=== PATIENT | female | born 1940 | race Caucasian/White ===

== ENCOUNTER 2022-12-30 10:52 | Outpatient (CLI) | payer MEDICARE, BC | END 2022-12-30 23:59 | disposition home or self-care (01) | LOC: CARD DIAG 10:52 | PROVIDERS: ATTEND Internal Medicine Cardiovascular Disease | DX: I34.81 Nonrheumatic mitral (valve) annulus calcification (principal); R06.02 Shortness of breath | CPT/HCPCS: 93306 ==

== ENCOUNTER 2023-05-27 10:03 | Day surgery (SDC) | payer MEDICARE, BC ==
[2023-05-26 12:55] LABS: BASOPHILS % (AUTO) 0.4 % (0-1); EOSINOPHILS % (AUTO) 0.3 % (0-6); HEMATOCRIT 31.4 % (35.0-45.0); HEMOGLOBIN 9.8 g/dl (12.0-16.0); LYMPHOCYTES # (AUTO) 0.3 X10'3 (1.1-4.8); LYMPHOCYTES % (AUTO) 3.7 % (21-51); MEAN CORPUSCULAR HEMOGLOBIN 27.8 PG (27.0-31.0); MEAN CORPUSCULAR HGB CONC 31.1 g/dL (33.0-36.5); MEAN CORPUSCULAR VOLUME 89.4 FL (78-98); MONOCYTES # (AUTO) 0.1 X10'3 (0-0.9); MONOCYTES % (AUTO) 1.5 % (2-12); NEUTROPHILS # (AUTO) 8.5 X10'3 (1.8-7.7); NEUTROPHILS % (AUTO) 94.1 % (42-75); PLATELET COUNT 259 X10'3 (140-440); RED BLOOD COUNT 3.51 X10'6 (4.20-5.60); RED CELL DISTRIBUTION WIDTH 17.7 % (11.5-14.5); WHITE BLOOD COUNT 9.1 X10'3 (4.5-11.0)
[2023-05-26 12:58] LABS: ALBUMIN 3.6 G/DL (3.4-5.0); ANION GAP 6 (8-16); BLOOD UREA NITROGEN 19 MG/DL (7-18); BUN/CREATININE RATIO 19.4 (10.0-20.0); CALCIUM 9.2 MG/DL (8.5-10.1); CHLORIDE 107 MMOL/L (99-107); CREATININE 0.98 MG/DL (0.40-0.90); GLUCOSE 121 MG/DL (70-104); POTASSIUM 4.3 MMOL/L (3.5-5.1); SODIUM 141 MMOL/L (135-145); TOTAL CARBON DIOXIDE 27.6 MMOL/L (24-32); eGFR 54 ML/MIN
[2023-05-26 13:00] LABS: APTT 29 SECONDS (22-32)
[~2023-05-27] VITALS: Ht 154.9 cm; Wt 57.6 kg
[2023-05-27] VITALS (10 sets, daily range): BP systolic 145–177; BP diastolic 53–69; PULSE 63–71; RESP 12–15; TEMP 98.4; O2SAT 93–100
[2023-05-27] MEDS ORDERED: diphenhydrAMINE 25mg capsule PO PRN (10:30)
[2023-05-27] MEDS ORDERED: normal saline 1,000 ML IV SCH (10:30)
[2023-05-27] MEDS ORDERED: LORazepam 0.5 MG tablet PO PRN (10:30)
[2023-05-27] MEDS ORDERED: FLEC50TA28 PO (11:02)
[2023-05-27] MEDS ORDERED: LOSA50TA64 PO (11:02)
[2023-05-27] MEDS ORDERED: ATOR40TA72 PO (11:02)
[2023-05-27] MEDS ORDERED: CARV6.2553 PO (11:02)
[2023-05-27] MEDS ORDERED: MONT-40 PO (11:02)
[2023-05-27] MEDS ORDERED: HYDR-3686 PO (11:02)
[2023-05-27] MEDS ORDERED: FLEC100T35 PO (11:05)
[2023-05-27] MEDS ORDERED: DAPA10TA PO (11:05)
[2023-05-27] MEDS ORDERED: APIX2.5T PO (11:07)
[2023-05-27] MEDS ORDERED: LEVO50TA8 PO (11:07)
[2023-05-27] MEDS ORDERED: PIOG45TA65 PO (11:07)
[2023-05-27] MEDS ORDERED: DUPI300P (11:07)
[2023-05-27] MEDS ORDERED: PRE5T PO (11:13)
[2023-05-27] MEDS ORDERED: METF-1203 PO (11:13)
[2023-05-27] MEDS ORDERED: LANTUS SQ (11:13)
[2023-05-27] MEDS ORDERED: DENO60DI SUBCUT (11:13)
[2023-05-27] MEDS ORDERED: NIAC-8 PO (11:13)
[2023-05-27] MEDS ORDERED: VITAMIN B12 (11:16)
[2023-05-27] MEDS ORDERED: IRON PO (11:16)
[2023-05-27] MEDS ORDERED: UBIQ75CA (11:18)
[2023-05-27] MEDS ORDERED: ASPI-1265 PO (11:18)
[2023-05-27] MEDS ORDERED: CALCIUM (11:19)
[2023-05-27] MEDS ORDERED: [UNRECOGNIZED DRUG - OTHER] (11:20)
[2023-05-27] MEDS ORDERED: LIDOcaine 1% (10mg/ml) 2ml vial ONE (11:53)
[2023-05-27] MEDS ORDERED: verapamil 2.5 mg/ml inj IV ONE (11:53)
[2023-05-27] MEDS ORDERED: iohexol 350MG/ML 100ml bottle IV ONE (11:54)
[2023-05-27] MEDS ORDERED: heparin 1,000unit/ml 10ml vial 10 ML ONE (11:54)
[2023-05-27] MEDS ORDERED: midazolam 1 mg/ML 2ml injection ONE (11:54)
[2023-05-27] MEDS ORDERED: iohexol 350 MG/ML 50ML vial IV ONE (11:54)
[2023-05-27] MEDS ORDERED: fentaNYL/PF 50MCG/1 ML 2ML syringe ONE (11:54)
[2023-05-27] MEDS ORDERED: nitroGLYCERIN 500mcg/5mL D5W 10 ML IV ONE (11:56)
[2023-05-27] MEDS ORDERED: normal saline 1000ml 1,000 ML IV SCH (13:10)
== END 2023-05-27 18:00 | disposition home or self-care (01) ==
LOC: SSTAY O 10:03
PROVIDERS: ATTEND Internal Medicine Cardiovascular Disease
DX: I25.10 Atherosclerotic heart disease of native coronary artery without angina pectoris (principal); E11.9 Type 2 diabetes mellitus without complications; E78.5 Hyperlipidemia, unspecified; I10 Essential (primary) hypertension; I48.0 Paroxysmal atrial fibrillation; Z88.2 Allergy status to sulfonamides; Z88.8 Allergy status to other drugs, medicaments and biological substances; Z79.899 Other long term (current) drug therapy; Z79.4 Long term (current) use of insulin
CPT/HCPCS: 36415; 76937; 80048; 82948; 85025; 85610; 85730; 93005; 93458; 99152; A6258; J1644; J2250; J3010; J3490; J7030; Q0163; Q9967; 99153; A6402; C1725; C1894